=== PATIENT | female | born 1965 | race Caucasian/White ===

== ENCOUNTER → 2023-08-09 | Outpatient (CLI) | payer OTHER ==
--- NOTE | 2023-08-09 18:45 | Diagnostic Imaging Report ---
TECHNIQUE: Live grayscale and color Doppler ultrasound was performed of the parotid glands. REASON FOR EXAM: Mass in the right parotid gland. COMPARISON: None. FINDINGS: A cystic lesion in the right parotid gland is seen measuring 1.4 x 1.4 x 1.7 cm. There are internal septations and debris within this cyst. No internal color Doppler flow is seen. Small lymph node is seen adjacent to this cyst. The left parotid gland was evaluated for comparison which shows no evidence of focal mass. IMPRESSION: 1. Nonspecific cystic lesion within the right parotid gland measuring 1.7 cm. No internal color Doppler flow is seen. Findings could be further characterized with contrast-enhanced CT or MRI of the face. Otherwise, repeat ultrasound in 6-12 months of the parotid glands could be performed to demonstrate stability. Dictated by: Dictated on workstation # [id number]
== END ==
LOC: RAD 14:45
PROVIDERS: ATTEND Otolaryngology Otolaryngology/Facial Plastic Surgery
DX: E23.6 Other disorders of pituitary gland (principal)
CPT/HCPCS: 76536